=== PATIENT | female | born 1975 | race Hispanic/Latino ===

== ENCOUNTER → 2024-01-06 | Outpatient (REF) | payer BC | LOC: WCC 14:00 | PROVIDERS: ATTEND Nurse Practitioner Family | DX: S31.829D Unspecified open wound of left buttock, subsequent encounter (principal); S31.819D Unspecified open wound of right buttock, subsequent encounter ==

== ENCOUNTER → 2024-01-09 | Outpatient (REF) | payer BC | LOC: WCC 13:00 | PROVIDERS: ATTEND Nurse Practitioner Family | DX: S31.829D Unspecified open wound of left buttock, subsequent encounter (principal); S31.819D Unspecified open wound of right buttock, subsequent encounter ==